=== PATIENT | female | born 1965 | race Two or more races ===

== ENCOUNTER 2022-07-28 17:01 | Emergency (ER) | payer OTHER ==
[~2022-07-28] VITALS: Ht 152.4 cm; Wt 76.2 kg
[2022-07-28] MEDS ORDERED: LIDOCAINE W/ EPINEPHRINE 1% 20ML VIAL ONE (20:58)
[2022-07-28] MEDS ORDERED: LIDOCAINE W/ EPINEPHRINE 1% 20ML VIAL ID ONE (21:00)
[2022-07-28] MEDS ORDERED: cefTRIAXone SOD 1,000 MG VL IM ONE (21:45)
[2022-07-28] MEDS ORDERED: ONDANSETRON HCL 4 MG/2 ML VIAL IV ONE (21:45)
[2022-07-28] MEDS ORDERED: HYDROcodone-ACET 10/325MG TAB PO ONE (21:45)
[2022-07-28 22:11] LABS: Basophils # (auto) 0.1 10 ^3/uL (0-0.2); Basophils % (auto) 0.8 % (0.0-2.0); Eosinophils # (auto) 0.1 10 ^3/uL (0-0.8); Eosinophils % (auto) 0.9 % (0.0-7.0); Hematocrit 46.1 % (36.0-46.0); Hemoglobin 15.7 g/dL (12.2-16.2); Lymphocytes # (auto) 2.4 10 ^3/uL (0.4-5.4); Lymphocytes % (auto) 36.4 % (10.0-50.0); Mean Corpuscular Hemoglobin 31.3 pg (28.0-32.0); Mean Corpuscular Hgb Conc. 33.9 g/dL (32.0-36.0); Mean Corpuscular Volume 92.2 fL (80.0-100.0); Monocytes # (auto) 0.5 10 ^3/uL (0-1.3); Neutrophils # (auto) 3.7 10 ^3/uL (1.6-8.6); Neutrophils % (auto) 54.9 % (37.0-80.0); Nucleated Red Blood Cells % 0.1 %; Red Blood Cells 5.01 10^6/uL (4.0-5.20); Red Cell Distribution Width 13.6 % (11.8-14.3); White Blood Cell 6.7 10^3/uL (4.4-10.8)
[2022-07-28 22:41] LABS: Anion Gap 9 (5-15); BUN/Creatinine Ratio 25.5; Blood Urea Nitrogen 14 mg/dL (7-18); Carbon Dioxide 23 mmol/L (21-32); Chloride 100 mmol/L (98-107); GFR African American 147 mL/min; GFR Non-African American 122 mL/min; Glucose 323 mg/dL (74-106); Sodium 132 mmol/L (136-145)
[2022-07-28 22:42] LABS: Alanine Aminotransferase 51 U/L (13-56); Alkaline Phosphatase 117 U/L (45-117); Aspartate Aminotransferase 44 U/L (15-37)
[2022-07-28 22:43] LABS: Albumin 3.1 g/dL (3.4-5.0); Bilirubin, Total 0.4 mg/dL (0.2-1.0); Calcium 8.6 mg/dL (8.5-10.1); Total Protein 7.9 g/dL (6.4-8.2)
[2022-07-29] MEDS ORDERED: DOXY-340 PO (00:24)
[2022-07-29] MEDS ORDERED: ONDANSETRON ODT 4 MG TAB PO ONE (00:45)
[2022-07-29 01:15] VITALS: BP 139/78
== END 2022-07-29 01:20 | disposition home or self-care (01) ==
LOC: ER 17:08
DX: L03.311 Cellulitis of abdominal wall (principal); L02.91 Cutaneous abscess, unspecified; E87.1 Hypo-osmolality and hyponatremia; E11.65 Type 2 diabetes mellitus with hyperglycemia; E78.5 Hyperlipidemia, unspecified; I10 Essential (primary) hypertension; Z88.0 Allergy status to penicillin; Z88.6 Allergy status to analgesic agent
CPT/HCPCS: 36415; 80053; 85025; 96372; 99283; J0696; Q0162

== ENCOUNTER 2022-10-22 20:35 | Emergency (ER) | payer OTHER ==
[~2022-10-22] VITALS: Ht 152.4 cm; Wt 76.2 kg
[~2022-10-22 20:35] MED LIST: DOXY1CAP57 PO
[2022-10-22 22:42] VITALS: BP 145/73
[2022-10-22] MEDS ORDERED: cefTRIAXone SOD 1,000 MG VL IM ONE (23:30)
[2022-10-22] MEDS ORDERED: CLIN300C70 PO (23:32)
[2022-10-22] MEDS ORDERED: ACET500T58 PO (23:32)
[2022-10-22] MEDS ORDERED: CEPH-510 PO (23:32)
== END 2022-10-22 23:42 | disposition home or self-care (01) ==
LOC: ER 20:39
DX: L03.311 Cellulitis of abdominal wall (principal); E11.9 Type 2 diabetes mellitus without complications; I10 Essential (primary) hypertension; E78.5 Hyperlipidemia, unspecified; Z88.0 Allergy status to penicillin; Z88.5 Allergy status to narcotic agent; Z79.899 Other long term (current) drug therapy
CPT/HCPCS: 96372; 99283; J0696

== ENCOUNTER 2023-01-11 23:48 | Inpatient (IN) | payer OTHER ==
[~2023-01-11] VITALS: Ht 152.4 cm; Wt 81.1 kg
[~2023-01-11 23:48] MED LIST changes: +ACET500T58 PO; +CEPH-510 PO; +CLIN300C70 PO
[2023-01-12] MEDS ORDERED: IOHEXOL 300 MG/ML 100ML BOTTLE IJ ONE (01:14)
[2023-01-12 01:41] LABS: Basophils # (auto) 0.1 10 ^3/uL (0-0.2); Basophils % (auto) 0.8 % (0.0-2.0); Eosinophils # (auto) 0.1 10 ^3/uL (0-0.8); Eosinophils % (auto) 0.6 % (0.0-7.0); Hematocrit 45.8 % (36.0-46.0); Hemoglobin 15.5 g/dL (12.2-16.2); Lymphocytes # (auto) 3.3 10 ^3/uL (0.4-5.4); Lymphocytes % (auto) 30.4 % (10.0-50.0); Mean Corpuscular Hemoglobin 31.2 pg (28.0-32.0); Mean Corpuscular Hgb Conc. 33.9 g/dL (32.0-36.0); Monocytes # (auto) 0.8 10 ^3/uL (0-1.3); Monocytes % (auto) 7.3 % (0.0-12.0); Neutrophils # (auto) 6.6 10 ^3/uL (1.6-8.6); Neutrophils % (auto) 60.9 % (37.0-80.0); Nucleated Red Blood Cells % 0.1 %; Red Blood Cells 4.98 10^6/uL (4.0-5.20); Red Cell Distribution Width 13.5 % (11.8-14.3); White Blood Cell 10.8 10^3/uL (4.4-10.8)
[2023-01-12 02:02] LABS: Albumin 3.6 g/dL (3.4-5.0); BUN/Creatinine Ratio 15.3 (10.0-20.0); Calcium 9.2 mg/dL (8.5-10.1); Potassium 3.9 mmol/L (3.5-5.1)
[2023-01-12 02:05] LABS: Bilirubin, Total 0.6 mg/dL (0.2-1.0); Total Protein 8.3 g/dL (6.4-8.2)
[2023-01-12] MEDS ORDERED: VANCOMYCIN 1GM/250ML 250 ML IV ONE ×2 (05:30→08:45)
[2023-01-12] MEDS ORDERED: LACTATED RINGER'S 1,000 ML IV ONE (05:30)
[2023-01-12] MEDS ORDERED: PIPERACILLIN-TAZOB 3.375GM 100 ML IV ONE (05:30)
[2023-01-12] MEDS ORDERED: MORPHINE SULFATE 4 MG/ML SYR/VIAL IV ONE (05:30)
[2023-01-12] MEDS ORDERED: ONDANSETRON HCL 4 MG/2 ML VIAL IV ONE (05:30)
[2023-01-12] MEDS ORDERED: DOCUSATE SOD 100 MG CAP PO PRN (05:45)
[2023-01-12] MEDS ORDERED: NITROGLYCERIN 0.4 MG SL TAB SL PRN (05:45)
[2023-01-12] MEDS ORDERED: DEXTROSE (50%) 50ML SYRG IV PRN (05:45)
[2023-01-12] MEDS ORDERED: MORPHINE SULFATE INJ 2 MG/ml SYRG IV PRN (05:45)
[2023-01-12] MEDS ORDERED: VANCOMYCIN PER PHARMACY 0 MG IV SCH (05:45)
[2023-01-12 06:50] LABS: Basophils # (auto) 0.1 10 ^3/uL (0-0.2); Basophils % (auto) 1.4 % (0.0-2.0); Eosinophils # (auto) 0.1 10 ^3/uL (0-0.8); Eosinophils % (auto) 0.6 % (0.0-7.0); Hematocrit 45.8 % (36.0-46.0); Hemoglobin 15.5 g/dL (12.2-16.2); Lymphocytes # (auto) 2.6 10 ^3/uL (0.4-5.4); Lymphocytes % (auto) 31.6 % (10.0-50.0); Mean Corpuscular Hgb Conc. 33.9 g/dL (32.0-36.0); Mean Corpuscular Volume 91.3 fL (80.0-100.0); Monocytes # (auto) 0.6 10 ^3/uL (0-1.3); Monocytes % (auto) 6.9 % (0.0-12.0); Neutrophils # (auto) 4.9 10 ^3/uL (1.6-8.6); Neutrophils % (auto) 59.5 % (37.0-80.0); Nucleated Red Blood Cells % 0.1 %; Red Blood Cells 5.02 10^6/uL (4.0-5.20); Red Cell Distribution Width 13.4 % (11.8-14.3); White Blood Cell 8.3 10^3/uL (4.4-10.8)
[2023-01-12] MEDS: MORPHINE SULFATE INJ 2 MG/ml SYRG IV PRN (06:55)
[2023-01-12 07:13] LABS: Albumin 3.5 g/dL (3.4-5.0); Potassium 3.9 mmol/L (3.5-5.1)
[2023-01-12 07:16] LABS: BUN/Creatinine Ratio 17.4 (10.0-20.0); Bilirubin, Total 0.5 mg/dL (0.2-1.0); Total Protein 8.1 g/dL (6.4-8.2)
[2023-01-12 07:20] VITALS: PULSE 88; RESP 20; O2SAT 96
[2023-01-12] MEDS: ACCU-CHEK COMFORT CURVE STRIP VI SCH ×4 (08:00→20:00)
[2023-01-12] MEDS ORDERED: CLINDAMYCIN 600MG IV 50 ML IV SCH (08:00)
[2023-01-12] MEDS: InsuLIN REG 1unit/0.01ml Soln (100units/ml) SC SCH ×4 (08:29→20:00)
[2023-01-12 13:00] VITALS: BP 140/83; PULSE 83; RESP 22; TEMP 98; O2SAT 94
[2023-01-12 13:35] VITALS: BP 140/83; PULSE 83; RESP 22; TEMP 98; O2SAT 94
[2023-01-12] MEDS ORDERED: LISI2.5T47 PO (13:47)
[2023-01-12] MEDS ORDERED: ATOR40TA52 PO (13:48)
[2023-01-12] MEDS ORDERED: PANT1INJ3 IV (13:49)
[2023-01-12] MEDS ORDERED: GLIP5TAB12 PO (13:49)
[2023-01-12] MEDS ORDERED: EMPA1TAB PO (13:50)
[2023-01-12] MEDS ORDERED: METF-370 PO (13:51)
[2023-01-12] MEDS ORDERED: SUCR1TAB PO (13:51)
[2023-01-12 16:00] VITALS: BP 139/73; PULSE 82; RESP 20; TEMP 98; O2SAT 94
[2023-01-12] MEDS: IBUPROFEN 600 MG TAB PO PRN (16:31)
[2023-01-12] MEDS: CLINDAMYCIN HCL 150 MG CAP PO SCH ×2 (17:27→22:00)
[2023-01-12 20:00] VITALS: RESP 18; O2SAT 95
[2023-01-12 22:00] VITALS: BP 140/85; PULSE 85; RESP 17; TEMP 97.9; O2SAT 85
[2023-01-13] VITALS (7 sets, daily range): BP systolic 113–133; BP diastolic 71–80; PULSE 67–77; RESP 17–18; TEMP 97.6–98.3; O2SAT 92–99
[2023-01-13] MEDS: InsuLIN REG 1unit/0.01ml Soln (100units/ml) SC SCH ×6 (00:51→20:00)
[2023-01-13] MEDS: ACCU-CHEK COMFORT CURVE STRIP VI SCH ×6 (04:29→20:00)
[2023-01-13] MEDS: VANCOMYCIN 1GM/250ML 250 ML IV SCH ×2 (04:29→21:45)
[2023-01-13] MEDS: CLINDAMYCIN HCL 150 MG CAP PO SCH ×3 (06:01→21:44)
[2023-01-13 06:44] LABS: Basophils # (auto) 0 10 ^3/uL (0-0.2); Basophils % (auto) 0.5 % (0.0-2.0); Eosinophils # (auto) 0.1 10 ^3/uL (0-0.8); Eosinophils % (auto) 1.5 % (0.0-7.0); Hematocrit 40.3 % (36.0-46.0); Hemoglobin 13.5 g/dL (12.2-16.2); Lymphocytes # (auto) 2.6 10 ^3/uL (0.4-5.4); Lymphocytes % (auto) 38.8 % (10.0-50.0); Mean Corpuscular Hemoglobin 30.7 pg (28.0-32.0); Mean Corpuscular Hgb Conc. 33.6 g/dL (32.0-36.0); Mean Corpuscular Volume 91.3 fL (80.0-100.0); Monocytes # (auto) 0.5 10 ^3/uL (0-1.3); Monocytes % (auto) 7.5 % (0.0-12.0); Neutrophils # (auto) 3.5 10 ^3/uL (1.6-8.6); Neutrophils % (auto) 51.7 % (37.0-80.0); Red Blood Cells 4.41 10^6/uL (4.0-5.20); White Blood Cell 6.7 10^3/uL (4.4-10.8)
[2023-01-13 06:57] LABS: Albumin 2.7 g/dL (3.4-5.0); Calcium 8.3 mg/dL (8.5-10.1); Potassium 3.3 mmol/L (3.5-5.1)
[2023-01-13 06:58] LABS: BUN/Creatinine Ratio 28.8 (10.0-20.0)
[2023-01-13 07:01] LABS: Bilirubin, Total 0.6 mg/dL (0.2-1.0); Total Protein 6.6 g/dL (6.4-8.2)
[2023-01-13] MEDS: ONDANSETRON HCL 4 MG/2 ML VIAL IV PRN ×3 (08:34→22:14)
[2023-01-13] MEDS: MORPHINE SULFATE INJ 2 MG/ml SYRG IV PRN ×2 (08:35→13:43)
[2023-01-13] MEDS: IBUPROFEN 600 MG TAB PO PRN (16:24)
[2023-01-14] MEDS: ACCU-CHEK COMFORT CURVE STRIP VI SCH ×4 (00:08→12:29)
[2023-01-14] MEDS: InsuLIN REG 1unit/0.01ml Soln (100units/ml) SC SCH ×4 (00:15→12:32)
[2023-01-14 05:00] VITALS: BP 101/49; PULSE 72; RESP 17; TEMP 97.8; O2SAT 93
[2023-01-14] MEDS: CLINDAMYCIN HCL 150 MG CAP PO SCH ×2 (06:22→12:32)
[2023-01-14] MEDS: IBUPROFEN 600 MG TAB PO PRN (06:39)
[2023-01-14 08:00] VITALS: PULSE 84; RESP 18; O2SAT 98
[2023-01-14 09:17] VITALS: BP 90/52; PULSE 84; RESP 18; TEMP 98.2; O2SAT 90
[2023-01-14] MEDS ORDERED: LEVO500T91 PO (11:22)
[2023-01-14] MEDS ORDERED: CLIN150C18 PO (11:22)
[2023-01-14 12:01] VITALS: BP 127/71; PULSE 84; RESP 18; TEMP 98.1; O2SAT 98
== END 2023-01-14 13:05 | disposition home or self-care (01) | DRG 383 ==
LOC: ER 23:48 → OVERFLOW 01-12 05:43 → WEST WING 01-12 13:00
PROVIDERS: ADMIT Nurse Practitioner Family; ATTEND Internal Medicine
DX: L02.211 Cutaneous abscess of abdominal wall (principal); E11.65 Type 2 diabetes mellitus with hyperglycemia; L03.311 Cellulitis of abdominal wall; I10 Essential (primary) hypertension; E78.5 Hyperlipidemia, unspecified; Z80.0 Family history of malignant neoplasm of digestive organs; Z88.0 Allergy status to penicillin; Z88.6 Allergy status to analgesic agent; Z83.3 Family history of diabetes mellitus; Z82.49 Family history of ischemic heart disease and other diseases of the circulatory system; Z88.8 Allergy status to other drugs, medicaments and biological substances
CPT/HCPCS: 10060; 10061; 36415; 74177; 80053; 82565; 82962; 83036; 85025; 87077; 87186; 87205; G0378; J1815; J2405; J2543

== ENCOUNTER 2023-04-05 18:20 | Emergency (ER) | payer OTHER ==
[~2023-04-05] VITALS: Ht 152.4 cm; Wt 75.8 kg
[~2023-04-05 18:20] MED LIST changes: +ATOR40TA52 PO; +CLIN150C18 PO; +EMPA1TAB PO; +GLIP5TAB12 PO; +LEVO500T91 PO; +LISI2.5T47 PO; +METF-370 PO; +PANT1INJ3 IV; +SUCR1TAB PO
[2023-04-05] MEDS ORDERED: MUPI2OIN2 EX (20:24)
[2023-04-05] MEDS ORDERED: BACDST PO (20:24)
[2023-04-05] MEDS ORDERED: CEPH500C PO (20:24)
[2023-04-06 00:30] VITALS: BP 143/91; PULSE 77; RESP 77; TEMP 98.1; O2SAT 98
== END 2023-04-06 00:35 | disposition home or self-care (01) ==
LOC: ER 18:20
DX: L02.211 Cutaneous abscess of abdominal wall (principal); E11.9 Type 2 diabetes mellitus without complications; E78.5 Hyperlipidemia, unspecified; I10 Essential (primary) hypertension; Z88.0 Allergy status to penicillin; Z88.5 Allergy status to narcotic agent; Z88.6 Allergy status to analgesic agent

== ENCOUNTER 2024-08-10 13:55 | Emergency (ER) | payer OTHER ==
[~2024-08-10] VITALS: Ht 152.4 cm; Wt 73.1 kg
[~2024-08-10 13:55] MED LIST changes: +BACDST PO; +CEPH500C PO; +CLIN1CAP70 PO; -CLIN300C70 PO; -GLIP5TAB12 PO; +GLIP5TAB21 PO; +MUPI2OIN2 EX
[2024-08-10 14:10] VITALS: BP 124/88; PULSE 102; RESP 16; TEMP 98.3; O2SAT 96
--- NOTE | 2024-08-10 14:21 | ED.PDOC ---
History of Present Illness HPI Comments 58-year-old female presents with a chief complaint of rash. Patient states that she has a fungal rash to her right inguinal skin fold. Patient denies any new lotions, detergents, or foods in her diet. Patient is requesting a shot or cream for the rash. Time Seen by MD: 14:09 Primary Care Provider: CORINNE Reviewed Notes: Medications, Allergies Allergies: Coded Allergies: Acetaminophen (Verified Allergy, Unknown, 07/28/22) Hydrocodone (Verified Allergy, Unknown, 07/28/22) Penicillins (Verified Allergy, Unknown, 07/28/22) Home Meds Active Scripts Mupirocin (Pseudomonas Fluores (Mupirocin) 2 % Oin, 1 APPLIC EX TID for 10 Days, #15 MG Apply to the affected AREA Prov:MILKA BETANCURA Q OIL DRILLER 04/05/23 Cephalexin Monohydrate (Cephalexin) 500 Mg Cap, 1 CAP PO QID for 10 Days, #40 CAP Prov:GYPSYMILKAA Q OIL DRILLER 04/05/23 Sulfamethoxazole W/Trimethopri (Bactrim Ds Tablet) 1 Tab Tb, 1 TAB PO BID for 10 Days, #20 TAB Prov:GYPSYMILKAA Q OIL DRILLER 04/05/23 Levofloxacin Hemihydrate (LEVOFLOXACIN) 500 Mg Tab, 500 MG PO DAILY for 10 Days, #10 TAB Prov:ATIF HERNANDEZ DO 01/14/23 Clindamycin Hcl (Clindamycin Hcl) 150 Mg Cap, 450 MG PO Q8HR for 10 Days, #10 CAP 0 Refills Prov:ATIF HERNANDEZ DO 01/14/23 Acetaminophen (Acetaminophen) 500 Mg Tab, 500 MG PO QIDP, #30 TAB 0 Refills Prov:NOAH NAVARRO 10/22/22 Clindamycin Hcl (Clindamycin Hcl) 300 Mg Cap, 1 CAP PO TID for 7 Days, #21 CAP 0 Refills Prov:NOAH NAVARRO 10/22/22 Cephalexin ( Keflex 500) 500 Mg Cap, 1 CAP PO BID for 7 Days, #14 CAP 0 Refills Prov:NOAH NAVARRO 10/22/22 Doxycycline Monohydrate (Doxycycline Monohydrate) 100 Mg Cap, 100 MG PO BID for 10 Days, #20 CAP 0 Refills Prov:CAROLE ARENAS DO 07/29/22 Reported Medications Metformin Hydrochloride (Metformin Hcl) 500 Mg Tab, 500 MG PO DAILY for 30 Days, MG 01/12/23 Sucralfate (Sucralfate) 1 Gm Tab, 1 GM PO DAILY, GM 01/12/23 Empagliflozin (Jardiance) 10 Mg Tab, 10 MG PO DAILY, TAB 01/12/23 Glipizide (Glipizide) 5 Mg Tab, 5 MG PO BID for 30 Days, MG 01/12/23 Pantoprazole Sodium (PANTOPRAZOLE SODIUM) 40 Mg Inj, 20 MG IV DAILY, INJ 01/12/23 Atorvastatin Calcium (ATORVASTATIN CALCIUM) 40 Mg Tab, 1 TAB PO DAILY, #30 TAB 5 Refills 01/12/23 Lisinopril (Lisinopril) 2.5 Mg Tab, 2.5 MG PO DAILY for 30 Days, #1 MG 01/12/23 Information Source: Patient Mode of Arrival: Ambulatory Severity: Moderate Timing: Days Duration: Since onset Prehospital treatment: None Past Medical History PAST MEDICAL HISTORY: DM, High Lipids, HTN Surgical History: Denies all surgeries PROMOTIONAL DEMONSTRATOR History: No Pertinent PROMOTIONAL DEMONSTRATOR History Family History Family History: Unknown Social History Smoker: Non-Smoker Alcohol: Denies ETOH Use Drugs: Denies Drug Use Lives In: Home Constitutional: denies: chills, diaphoresis, fatigue, fever, malaise, sweats, weakness, others EENTM: denies: blurred vision, double vision, ear bleeding, ear discharge, ear drainage, ear pain, ear ringing, eye pain, eye redness, hearing loss, mouth pain, mouth swelling, nasal discharge, nose bleeding, nose congestion, nose pain, photophobia, tearing, throat pain, throat swelling, voice changes, others Respiratory: denies: cough, hemoptysis, orthopnea, SOB at rest, shortness of breath, SOB with excertion, stridor, wheezing, others Cardiovascular: denies: chest pain, dizzy spells, diaphoresis, Dyspnea on exertion, edema, irregular heart beat, left arm pain, lightheadedness, palpitations, PND, syncope, others Gastrointestinal: denies: abdomen distended, abdominal pain, blood streaked bowels, constipated, diarrhea, dysphagia, difficulty swallowing, hematemesis, melena, nausea, poor appetite, poor fluid intake, rectal bleeding, rectal pain, vomiting, others Genitourinary: denies: abnormal vagina bleeding, burning, dyspareunia, dysuria, flank pain, frequency, hematuria, incontinence, pain, , vagina discharge, urgency, others Neurological: denies: dizziness, fainting, headache, left sided numbness, left sided weakness, numbness, paresthesia, pre-existing deficit, right sided numbness, right sided weakness, seizure, speech problems, tingling, tremors, weakness, others Musculoskeletal: denies: back pain, gout, joint pain, joint swelling, muscle pain, muscle stiffness, neck pain, others Integumetry: reports: rash; denies: bruises, change in color, change in hair/nails, dryness, laceration, lesions, lumps, wounds, others Allergic/Immunocompromised: denies: Difficulty Healing, Frequent Infections, Hives, Itching, others Hematologic/Lymphatic: denies: anemia, blood clots, easy bleeding, easy bruising, swollen glands, others Endocrine: denies: excessive hunger, excessive sweating, excessive thirst, excessive urination, flushing, intolerance to cold, intolerance to heat, unexplained weight gain, unexplained weight loss, others Psychiatric: denies: anxiety, bipolar disorder, depression, hopeless, panic disorder, schizophrenia, sleepless, suicidal, others All Other Systems: Reviewed and Negative Physical Exam General Appearance: No Apparent Distress, Normal HEENT: Normal ENT Inspection, Pharynx Normal, TMs Normal Neck: Full Range of Motion, Non-Tender, Normal, Normal Inspection Respiratory: Chest Non-Tender, Lungs Clear, No Accessory Muscle Use, No Respiratory Distress, Normal Breath Sounds Cardiovascular: No Edema, No JVD, No Murmur, No Gallop, Normal Peripheral Pulses, Regular Rate/Rhythm Breast Exam: Deferred Gastrointestinal: No Organomegaly, Non Tender, No Pulsatile Mass, Normal Bowel Sounds, Soft Genitalia: Deferred Pelvic: Other (RASH TO RIGHT INGUINAL SKIN FOLD) Rectal: Deferred Extremities: No calf tenderness, Normal capillary refill, Normal inspection, Normal range of motion, Non-tender, No pedal edema Musculoskeletal : Apperance: Normal Neurologic: Alert, bus and trolley dispatcher II-XII nml as Tested, No Motor Deficits, Normal Affect, Normal Mood, No Sensory Deficits Cerebellar Function: Normal Reflexes: Normal Skin: Dry, Normal Color, Warm Lymphatic: No Adenopathy Was a procedure done? Was a procedure done?: No Differential Dx Considerations may include: cellulitis, candidiasis, folliculitis, abscess, intertrigo X-Ray, Labs, Meds, VS Vital Signs Date Time Temp Pulse Resp B/P (MAP) Pulse Ox O2 Delivery O2 Flow Rate FiO2 08/10/24 14:10 98.0 102 16 124/88 (100) 96 98.0 Time of 1ST Reevaluation: 14:39 Reevaluation 1ST: Unchanged Patient Education/Counseling: Diagnosis, Treatment, Prognosis, Need For Follow Up Family Education/Counseling: No Family Present Additional Information pt has intertrigo of the right groin. she is just requesting for medication and nothing else Departure 1 Departure Time of Disposition: 15:08 Impression: Primary Impression: Intertrigo Disposition: 01 HOME / SELF CARE / HOMELESS Condition: Good e-Prescriptions Nystatin (Nystatin) 100,000 Unit/Gm Cre 1 APPLIC TOP BID, #1 EA Prov: ATUL HERNANDEZ MD 08/10/24 Discharged With: Self Critical Care Note Critical Care Time?: No Stability Stability form required: No Heart Score Heart Score: Heart Score Response (Comments) Value History N/A 0 EKG N/A 0 Age N/A 0 Risk Factors N/A 0 Troponin N/A 0 Total 0 I personally scribed for ATUL HERNANDEZ MD ([email or web address]) on 08/10/24 at 14:21. Electronically submitted by Faraz Olea ([email or web address]). ATUL HERNANDEZ MD Aug 10, 2024 14:21
[2024-08-10] MEDS ORDERED: NYST-23 TOP (15:10)
== END 2024-08-10 15:26 | disposition home or self-care (01) ==
LOC: ER 13:55
DX: L30.4 Erythema intertrigo (principal); E11.9 Type 2 diabetes mellitus without complications; E78.5 Hyperlipidemia, unspecified; I10 Essential (primary) hypertension; Z88.0 Allergy status to penicillin; Z88.6 Allergy status to analgesic agent; Z79.899 Other long term (current) drug therapy